=== PATIENT | female | born 1970 | race Caucasian/White ===

== ENCOUNTER 2021-05-09 10:34 | Outpatient (CLI) | payer OTHER, SELFPAY ==
--- NOTE | ~2021-05-09 | MR_ITS ---
EXAMINATION: MR brain/brain stem wo/w con EXAM DATE: 05/09/2021 11:50 INDICATION: Multiple sclerosis. TECHNIQUE: Magnetic resonance imaging (MRI) of the brain/brain stem obtained without contrast. Sagit fely T1, axial diffusion, gradient echo (T2*), T1, T2, FLAIR sequences obtained. Patient was then inj ected with 12 cc intravenous Multihance contrast. Axial and coronal postcontrast T1 weighted sequence s obtained. Demyelinating protocol was utilized including sagittal FLAIR images. Comparison is made to prior examination from 09/20/2015. FINDINGS: There is stable 1.4 cm T2 hyperintensity, T1 hypointensity involving the left side of the c orpus callosum, consistent with given history of quiescent multiple sclerosis. There our approximatel y 8 other much smaller signal abnormalities within nonspecific locations. No posterior fossa signal a bnormalities. There is no significant interval change. There are no areas of abnormal enhancement on the post contrast images. No extra-axial collections, brain mass, acute intracranial hemorrhage or hy drocephalus. IMPRESSION: Stable white matter signal abnormalities, one involving corpus callosum adding specifici ty for multiple sclerosis. No active disease. Reviewed, dictated and finalized at location B. IMPRESSION: Stable white matter signal abnormalities, one involving corpus alejandro losum adding specificity for multiple sclerosis. No active disease.
[2021-05-09 11:16] LABS: Estimated Glomerular Filt Rate 58
== END 2021-05-09 10:35 | disposition home or self-care (01) ==
PROVIDERS: PCP Family Medicine; Visit Provider Psychiatry & Neurology Neurology
DX: G35 Multiple sclerosis (principal)
CPT/HCPCS: 70553; A9577

== ENCOUNTER 2023-11-29 10:48 | Emergency (ER) | payer BC, SELFPAY ==
--- NOTE | ~2023-11-29 | US_ITS ---
Limited Abdominal Sonogram: Real-time sonographic imaging of the right upper quadrant was performed. Clinical History: Right upper quadrant pain Findings: The liver appears normal with no evidence of mass lesion or bile duct dilatation. Main por fely vein demonstrates normal direction of flow. The gallbladder is contracted, but appears normal wit h no evidence of gallstone or wall thickening. The common bile duct measures 2 mm. The visualized pa ncreas, aorta, and IVC are unremarkable. Impression: No significant abnormality seen. Reviewed, dictated and finalized at location . Impression: No significant abnormality seen.
[2023-11-29 11:13] VITALS: BP 126/66; PULSE 86; RESP 18; TEMP 36.4; O2SAT 97
--- NOTE | 2023-11-29 11:38 | PC.NURSE ---
Pt reports pain to right lateral rip that she says is better when palpated.
[2023-11-29 11:56] LABS: Basophils Percent Auto 0.6 % (0.2-1.2); Eosinophils Absolute Auto 0.1 K/mm3 (0-0.3); Eosinophils Percent Auto 1.1 % (0-4.4); Hematocrit 46.5 % (37.0-47.0); Hemoglobin 15.4 g/dL (12.0-15.0); Immature Granulocyte Absolute 0.03 K/mm3 (0.00-0.031); Immature Granulocyte Percent A 0.4 % (0-0.5); Lymphocytes Percent Auto 9.6 % (18.3-44.2); Mean Corpuscular HGB Conc 33.1 g/dl (32-36); Mean Corpuscular Hemoglobin 31.5 pg (26-34); Mean Corpuscular Volume 95.1 fl (80-100); Mean Platelet Volume 9.8 fl (7.4-10.4); Monocytes Absolute Auto 0.6 K/mm3 (0.1-0.6); Monocytes Percent Auto 8.5 % (2.6-8.5); Neutrophils Absolute Auto 5.8 K/mm3 (1.3-6.7); Neutrophils Percent Auto 79.8 % (45.5-73.1); Platelet Count Result 237 k/mm3 (150-375); Red Blood Count 4.89 M/mm3 (4.2-5.4); Red Cell Distribution Width 13.9 % (11.5-14.5); White Blood Count 7.3 K/mm3 (4.5-10.0)
[2023-11-29 11:59] LABS: Appearance Urine Cloudy (Clear); Bacteria Urine 2+ /hpf; Bilirubin Urine Negative (Negative); Blood Urine Negative (Negative); Color Urine Yellow (Yellow); Glucose Urine UA Negative (Negative); Ketones Urine Trace mg/dL (Negative); Leukocyte Esterase Ur Negative LEU/UL (Negative); Nitrate Urine Negative (Negative); Non Pathogenic Casts 0-2; Protein Urine Negative (Negative); RBC Urine 0-2 /hpf (0-2); Specific Grav Ur 1.025 (1.001-1.035); Squamous Epithelial Cell Urine Few /hpf (Few); WBC Urine 0-5 /hpf (0-3)
[2023-11-29 12:04] LABS: Add Urine Microscopic? YES
[2023-11-29 12:05] LABS: Alanine Aminotransferase 18 U/L (6-35); Albumin Level 4.6 g/dL (3.5-5.1); Alkaline Phosphatase 95 U/L (38-126); Anion Gap 8 mmol/L (4-12); Aspartate Amino Transferase 25 U/L (14-36); Bilirubin,Total 0.3 mg/dL (0.2-1.3); Blood Urea Nitrogen 15 mg/dL (7-17); Calcium 8.8 mg/dL (8.4-10.2); Carbon Dioxide 27 mmol/L (22-30); Chloride 105 mmol/L (98-107); Estimated CRCL calculation 69 ml/min; Estimated Glomerular Filt Rate > 60; Glucose 103 mg/dL (65-110); Lipase 113 U/L (23-300); Potassium 4.3 mmol/L (3.4-5.0); Sodium 140 mmol/L (137-145)
[2023-11-29 12:19] VITALS: BP 134/68; PULSE 82; RESP 14; O2SAT 98
[2023-11-29] MEDS: HYDROmorphone HCL INJ (*CRX) 1 MG/ML SYR 0.5 MG IV PUSH (12:19)
[2023-11-29] MEDS: ONDANSETRON INJ 4 MG/2 ML VIAL IV PUSH (12:19)
--- NOTE | 2023-11-29 13:54 | ED.ABDPAIN ---
HPI - Abdominal Pain General Chief Complaint: Abdominal Pain Stated Complaint: abd pain Time Seen by Provider: 11/29/23 11:48 History of Present Illness HPI narrative: 53-year-old female presented to the emergency department for evaluation for 4 days of intermittent nausea vomiting with some upper abdominal pain. Related Data Home Medications Medication Instructions Recorded Confirmed alprazolam 0.5 mg tablet (Xanax) 0.5 mg PO TID 06/18/19 12/13/22 buspirone 15 mg tablet 15 mg PO BID 06/18/19 12/13/22 dimethyl fumarate 120 mg 120 mg PO BID 06/18/19 12/13/22 capsule,delayed release (Tecfidera) gabapentin 100 mg capsule 100 mg PO DAILY 06/18/19 12/13/22 olanzapine 5 mg tablet 5 mg PO DAILY 06/18/19 12/13/22 venlafaxine 25 mg tablet 25 mg PO DAILY 06/18/19 12/13/22 Allergies Allergy/AdvReac Type Severity Reaction Status Date / Time ibuprofen AdvReac Severe STOMACH Verified 12/13/22 07:22 UPSET Review of Systems Review of Systems: All systems reviewed & are unremarkable except as noted in HPI and below PMFSH Past Medical History Medical History (Updated 11/29/23 @ 13:57 by Nilson Claire MD) HLD (hyperlipidemia) IFG (impaired fasting glucose) Family History Family History Father Patient's father is in good health Mother Family history of diabetes mellitus in first degree relative Social History Social History Social History: Smoking status: Current every day smoker Tobacco type: cigarettes Second hand tobacco smoke exposure: Yes Alcohol intake: never Substance use: never Substance use type: does not use Living arrangements: with family Occupation/Education: occupation Gender identity (if verbalized by the patient): Female Sexual Orientation (if Verbalized by the Patient): Straight or Heterosexual Exam Narrative: APPEARANCE: Well appearing, no pain, no distress, well-nourished. HEAD: normocephalic, atraumatic. EYES: PERRLA/EOMI, conjunctivae clear. NOSE: Normal no drainage EARS:TMS clear with good light reflex. THROAT: Pharynx clear, no exudate. NECK: Supple. No adenopathy, no masses. RESPIRATORY: Airway patent, respirations nonlabored. Clear to auscultation bilaterally, no rales, rhonchi, wheezing. CARDIOVASCULAR: Regular rate and rhythm without murmurs rubs or gallops. ABDOMINAL: Right upper quadrant tenderness to palpation MUSCULOSKELETAL: Moves all extremities. Strength/ROM intact, No edema, No calf tenderness. NEURO: Alert. Cranial nerves II through XII intact. Grossly intact Course Course Emergency Course: Patient felt improved with treatment. Vital Signs Vital signs: Vital Signs Temperature 97.6 F 11/29/23 11:13 Pulse Rate 86 11/29/23 11:13 Respiratory Rate 18 11/29/23 11:13 Blood Pressure 126/66 11/29/23 11:13 Pulse Oximetry 97 11/29/23 11:13 Oxygen Delivery Room Air 11/29/23 11:13 Temperature 97.6 F 11/29/23 11:13 Pulse Rate 84 11/29/23 14:03 Respiratory Rate 18 11/29/23 14:03 Blood Pressure 139/65 11/29/23 14:03 Pulse Oximetry 98 11/29/23 14:03 Oxygen Delivery Room Air 11/29/23 11:13 MDM - Abdominal Pain MDM Narrative Medical decision making narrative: 53-year-old female presents emergency department for evaluation upper abdominal pain. Patient did have some right upper quadrant tenderness to palpation. Patient is afebrile with no leukocytosis and a stable hemoglobin of 15.4. Patient had no significant abnormalities on her CMP clinic normal T bili AST ALT alk-phos and a normal lipase. UA showed no significant evidence of infection. Due to patient having some right upper quadrant tenderness to palpation and associated nausea upper quadrant ultrasound was ordered and showed no evidence of acute cholecystitis. Concern is still that her underlying etiologies related to gallbladder
[2023-11-29 14:03] VITALS: BP 139/65; PULSE 84; RESP 18; O2SAT 98
== END 2023-11-29 14:04 | disposition home or self-care (01) ==
PROVIDERS: Emergency Provider Emergency Medicine; PCP Family Medicine
DX: R10.10 Upper abdominal pain, unspecified (principal); R11.0 Nausea; E78.5 Hyperlipidemia, unspecified; F17.210 Nicotine dependence, cigarettes, uncomplicated
CPT/HCPCS: 36415; 76705; 80053; 81001; 83690; 85025; 96374; 96375; 99284; J1170; J2405